=== PATIENT | female | born 1985 | race Caucasian/White ===

== ENCOUNTER 2019-04-15 15:48 | Outpatient (CLI) | payer BC, SELFPAY ==
--- NOTE | ~2019-04-15 | US_ITS ---
EXAMINATION: US OB follow up DATE: 04/15/2019 16:25 INDICATION: Normal encounter for . Evaluate age. TECHNIQUE: Real-time transabdominal obstetric ultrasound. FINDINGS: No prior studies for comparison. There is a single living fetus in transverse presentation. The placenta is posterior with placenta p revia. cardiac activity and movement is noted with a heart rate of 161 beats per minute. T he amniotic fluid volume is subjectively normal. The following biometric data were obtained: BPD: 29mm corresponds to gestational age 15 weeks 1 days. Head circumference: 111mm corresponds to gestational age 15 weeks 2 days. Abdominal circumference: 104mm corresponds to gestational age 16 weeks 2 days. Femur length: 20mm corresponds to gestational age 16 weeks 0 days. Estimated weight: 144grams +/- 21grams.] There is a right ovarian corpus luteal cyst measuring 2.6 cm. IMPRESSION: 1. Single living intrauterine in transverse presentation with an estimated gestational age of 15 weeks 1 days by current ultrasound. EDC is 10/02/2019. 2: Placenta previa. 3: Corpus luteal cyst of the right ovary measuring 2.6 cm. Reviewed, dictated and finalized at location B. INUOUS IMPROVEMENT BLACK BELT IMPRESSION: 1. Single living intrauterine in transverse presentation with an est imated gestational age of 15 weeks 1 days by current ultrasound. EDC is 10/02/19 20. 2: Placenta previa. 3: Corpus luteal cyst of the right ovary measuring 2.6 cm.
== END 2019-04-15 15:49 | disposition home or self-care (01) ==
LOC: ANHIMG 15:51
DX: Z34.90 Encounter for supervision of normal pregnancy, unspecified, unspecified trimester (principal); Z3A.15 15 weeks gestation of pregnancy; O44.02 Complete placenta previa NOS or without hemorrhage, second trimester; N83.11 Corpus luteum cyst of right ovary
CPT/HCPCS: 76816